=== PATIENT | female | born 1955 | race Caucasian/White ===

== ENCOUNTER 2016-04-07 20:19 | Emergency (ER) | payer OTHER ==
[~2016-04-07] VITALS: Ht 162.6 cm; Wt 67.1 kg
[~2016-04-07 20:19] MED LIST: ADVIL COLD PO; BACTRIM DS TAB1 EACH PO; CIPRODEX OTIC7.5 ML OT; CLEOCIN HCL150 MG PO; FAMVIR 500MG500 MG PO; IBUPROFEN COLD PO; KEFLEX500 M1 PO; LASIX20 M1 PO; [UNRECOGNIZED DRUG - OTHER] PO
[2016-04-07 20:55] VITALS: BP 152/81
[2016-04-07] MEDS ORDERED: MUPIROCIN22 GM TOP (22:19)
--- NOTE | 2016-04-07 22:19 | ED GENERAL ADULT ---
History of Present Illness General Chief Complaint: General Adult Stated Complaint: PT HAS A BUMP ON HER HEAD GETTING BIGGER Source: patient, old records Exam Limitations: no limitations Vital Signs & Intake/Output Vital Signs & Intake/Output Vital Signs Date Time Temp Pulse Resp B/P Pulse O2 O2 Flow FiO2 Ox Delivery Rate 04/07 2054 97.9 91 18 152/81 97 Room Air ED Intake and Output 04/08 0000 04/07 1200 Intake Total Output Total Balance Patient 148 lb Weight Allergies Coded Allergies: Penicillins (PENICILLIN - BABY? 04/13/15) Reconcile Medications Cephalexin (Keflex) 500 MG CAPSULE 1 TAB PO TID CELLULITIS Ciprofloxacin HCl/Dexameth (Ciprodex Otic Suspension) 7.5 ML DROPS.SUSP 4 GTT OT BID OTITIS EXTERNA Furosemide (Lasix) 20 MG TABLET 1 TAB PO DAILY EDEMA IBUPROFEN/PSEUDOEPHEDRINE HCL (Ibuprofen Cold-Sinus Cplt) 1 TAB TAB 1 TAB PO PRN HEADACHES/SINUSES (Reported) Mupirocin 2 % OINT...G. 1 DOUGLAS TOP TID PRN facial rash apply to affected area(s) Sulfamethoxazole/Trimethoprim (Bactrim Ds Tablet) 1 EACH TABLET 1 TAB PO BID CELLULITIS Triage Note: PT TO ED C/O ENLARGING LUMP ON TOP OF HEAD AND RISA EAR PROBLEMS FOR A COUPLE OF DAYS Triage Nurses Notes Reviewed? yes HPI: Patient is a 60-year-old female presents complaining of a "bump to her head" and rash to her face. Patient reports that she has had both for several years. Patient has seen her primary doctor who recommended that patient sees a loan operations specialist but patient has not seen a loan operations specialist. Patient reports over the past few days she has felt inflammation to her face and has had "lesions breakout". Also reports a bump to the left upper part of her scalp is been there for years. Patient reports that she was told that it was a lipoma but noticed that it was getting slightly bigger over the past few weeks. Patient also reports decreased hearing for the past couple of weeks. Patient denies fevers (CHRISTINA BEGUM,VICENTA) Past History Travel History Traveled to [place] past 21 day No Medical History Any Pertinent Medical History? see below for history Neurological: "bad migraines" EENT: NONE Cardiovascular: ABNORMAL EKG Respiratory: NONE Gastrointestinal: NONE Hepatic: NONE Renal: NONE Musculoskeletal: sciatica, R HIP CHRONIC PAIN Psychiatric: NONE Endocrine: NONE Blood Disorders: NONE Other Medical Hx: Lipoma to scalp Tetanus Vaccine: 06/25/11 Surgical History Surgical History: non-contributory Psychosocial History What is your primary language Chinese Tobacco Use: Quit >30 days ago ETOH Use: denies use Illicit Drug Use: denies illicit drug use Family History Hx Contributory? No (VICENTA HINDS) Review of Systems Review of Systems Constitutional: Denies: chills, fever. EENTM: Reports: see HPI, hearing changes. Respiratory: Denies: short of breath. Cardiovascular: Denies: chest pain. GI: Denies: abdominal pain. Musculoskeletal: Reports: no symptoms. Skin: Reports: see HPI. Neurological/Psychological: Reports: no symptoms. Hematologic/Endocrine: Denies: bruising, bleeding. Immunologic/Allergic: Denies: splenectomy. (VICENTA HINDS) Physical Exam Physical Exam General Appearance: well developed/nourished, alert, awake Head: 2.5 cm soft raised nodular density to the left superior scalp. No erythema, no induration, no fluctuance. multiple 0.5 cm scabbed lesions to bridge of nose and bilateral cheeks. No drainage no surrounding erythema. Eyes: Bilateral: normal appearance, PERRL, EOMI. Ears, Nose, Throat: bilateral cerumen impaction. No inflammation of the external auditory canals. Neck: normal inspection, supple, full range of motion Respiratory: no respiratory distress Back: normal inspection, normal range of motion Extremities: normal inspection, normal capillary refill, normal range of motion Neurologic/Psych: awake, alert, oriented x 3 Skin: see head exam Lymphatic: no anterior cervical zeenat Core Measures ACS in differential dx? No CVA/TIA Diagnosis: No Severe Sepsis Present: No Septic Shock Present: No (VICENTA HINDS) Progress Differential Diagnoses I considered the following diagnoses in my evaluation of the patient: Lipoma, shingles, impetigo, allergic reaction, excoriations, cellulitis Plan of Care: Patient afebrile, nontoxic appearing. Patient instructed to follow-up with her primary doctor regarding her lipoma and skin lesions for further evaluation. Initial ED EKG: none (VICENTA HINDS) Departure Departure Time of Disposition: 2216 Disposition: HOME OR SELF CARE Condition: Stable Clinical Impression Primary Impression: Lipoma Secondary Impressions: Cerumen impaction, Facial rash Referrals: CHAS GEE MD (PCP/Family) Additional Instructions: Follow-up with your primary doctor next week for further evaluation. Call Sunday for appointment. Use Debrox ear drops(over the counter) for the ear wax build up in your ears as directed. Return to the emergency department if fevers or worsening of symptoms. Departure Forms: Customer Survey General Discharge Information Prescriptions: Current Visit Scripts Mupirocin 1 DOUGLAS TOP TID PRN facial rash #15 GM apply to affected area(s) (VICENTA HINDS) PA/LEAD ETL DEVELOPER Co-Sign Statement Statement: ED Attending supervision documentation- [] I saw and evaluated the patient. I have also reviewed all the pertinent lab results and diagnostic results. I agree with the findings and the plan of care as documented in the PA's/LEAD ETL DEVELOPER's documentation. [x] I have reviewed the ED Record and agree with the PA's/LEAD ETL DEVELOPER's documentation. [] Additions or exceptions (if any) to the PAs/LEAD ETL DEVELOPER's note and plan are summarized below: [] (UMANG RAMIREZ,SHERWIN Quintana) Critical Care Note Critical Care Note Critical Care Time: non-applicable (VICENTA HINDS)
== END 2016-04-07 22:34 ==
LOC: ERH 20:19
DX: D17.9 Benign lipomatous neoplasm, unspecified (principal); H61.23 Impacted cerumen, bilateral

== ENCOUNTER 2016-06-23 20:10 | Emergency (ER) | payer OTHER ==
[~2016-06-23] VITALS: Ht 162.6 cm; Wt 63.5 kg
[~2016-06-23 20:10] MED LIST changes: +MUPIROCIN22 GM TOP
[2016-06-23 20:16] VITALS: BP 146/80
[2016-06-23] MEDS ORDERED: MELOXICAM15 M1 (21:23)
[2016-06-23] MEDS ORDERED: CYCLOBENZAPRINE10 M1 (21:24)
--- NOTE | 2016-06-23 21:41 | ED GI/GU/ABDOMINAL COMPLAINT ---
History of Present Illness General Chief Complaint: Lower Extremity Problems Stated Complaint: PT IS HAVING HIP PAIN Source: patient Exam Limitations: no limitations Allergies Coded Allergies: Penicillins (PENICILLIN - BABY? 04/13/15) Reconcile Medications Cyclobenzaprine HCl (Unknown Strength) TABLET (Unknown Dose) UNKNOWN ( Reported) Ibuprofen/Pseudoephedrine HCl (Ibuprofen Cold-Sinus Cplt) 200 MG-30 MG TABLET 1 TAB PO PRN HEADACHES/SINUSES (Reported) Meloxicam (Unknown Strength) TABLET (Unknown Dose) UNKNOWN (Reported) Triage Note: PT TO ED FOR WORSENING R SIDED CHRONIC HIP PAIN. PAIN RADIATES DOWN R LEG. "PAIN HAS BEEN GOING ON FOR MONTHS" WORSE TONIGHT. PAIN 8/. 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 "I'VE BEEN STANDING A LOT THE PAST FEW DAYS IT FEELS BETTER WHEN I SIT." PT AMBULATORY TO TRIAGE. Triage Nurses Notes Reviewed? yes ? N Is pt currently ? No HPI: This patient is a 60-year-old female who presented to the emergency department today for evaluation of chronic right hip pain. The patient reported that she gets pain in her hip and it radiates down to her knee. She reported that this comes and goes over the last year. She has been seen and was told that she may need an MRI. The patient never followed up. The patient reported that she has been walking a lot today and the pain started while she was walking to come appeared to eat at [employer]. The patient denied any difficulty walking. She reported the pain except a 6 out of 10 and is sharp. She denied any bowel or bladder incontinence. No saddle paresthesia. She denied any trauma or falls to the area she denied any fevers or chills. No difficulty breathing or chest pain. (RAMIRO MENDENHALL,ANJU) Vital Signs & Intake/Output Vital Signs & Intake/Output Vital Signs Date Time Temp Pulse Resp B/P B/P Pulse O2 O2 Flow FiO2 Mean Ox Delivery Rate 06/24 2015 97.9 84 16 146/80 97 Room Air ED Intake and Output 06/24 0000 06/23 1200 Intake Total Output Total Balance Patient 140 lb Weight Weight Reported by Patient Measurement Method Past History Travel History Traveled to [place] past 21 day No Medical History Any Pertinent Medical History? see below for history Neurological: "bad migraines" EENT: NONE Cardiovascular: ABNORMAL EKG Respiratory: NONE Gastrointestinal: NONE Hepatic: NONE Renal: NONE Musculoskeletal: sciatica, R HIP CHRONIC PAIN Psychiatric: NONE Endocrine: NONE Blood Disorders: NONE Other Medical Hx: Lipoma to scalp Tetanus Vaccine: 06/25/11 Surgical History Surgical History: non-contributory Psychosocial History What is your primary language Syrian Tobacco Use: Quit >30 days ago Family History Hx Contributory? No (ANJU RUBIO PA-C) Review of Systems Review of Systems Constitutional: Reports: no symptoms. EENTM: Reports: no symptoms. Respiratory: Reports: no symptoms. Cardiovascular: Reports: no symptoms. GI: Reports: no symptoms. Genitourinary: Reports: no symptoms. Musculoskeletal: Reports: see HPI. Skin: Reports: no symptoms. Neurological/Psychological: Reports: no symptoms. All Other Systems: Reviewed and Negative (ANJU RUBIO PA-C) Physical Exam Physical Exam Gastrointestinal: normal bowel sounds, soft, non-tender, no organomegaly Comments: Well-developed well-nourished person in no acute distress. HEENT: Head normocephalic, moist mucous membranes Neck: Supple, no lymphadenopathy Back: Normal inspection. No midline tenderness. No paraspinal musculature tenderness. Respiratory: No respiratory distress. Speaking in full sentences Extremities: No edema, full range of motion Neuro: Alert and oriented x3 Psych: Mood affect normal, normal memory normal judgment. Skin: Warm and dry, no rash on exposed skin Core Measures ACS in differential dx? No Severe Sepsis Present: No Septic Shock Present: No (ANJU RUBIO PA-C) Progress Differential Diagnosis: SCIATICA, DISC HERNIATION, CAUDA EQUINA SYNDROME, MUSCLE STRAIN Plan of Care: This patient is a 60-year-old female who presented to the emergency department today for evaluation of chronic right hip pain. The patient is able to ambulate without difficulty around the room. She has full range of motion at her hip. She reported that this pain is something that comes and goes on its own over the last year. She would like an orthopedist to follow up with. Stable for discharge home. Likely sciatica. Initial ED EKG: none (ANJU RUBIO PA-C) Departure Departure Disposition: HOME OR SELF CARE Condition: Stable Clinical Impression Primary Impression: Sciatica Qualifiers: Laterality: right Qualified Code: M54.31 - Sciatica, right side Referrals: THEODORE RAMIREZ,CHAS PERKINS MD (PCP/Family) Additional Instructions: Please follow-up with the orthopedist's information has been provided to you in this packet. youmay take [id number] Tylenol for your symptoms. Elevate your leg when possible. Gentle stretching. Return for any worsening symptoms or concerns. Please follow-up with your primary care physician. Departure Forms: Customer Survey General Discharge Information (RAMIRO MENDENHALL,ANJU) PA/SWEAT BAND SEPARATOR Co-Sign Statement Statement: ED Attending supervision documentation- [] I saw and evaluated the patient. I have also reviewed all the pertinent lab results and diagnostic results. I agree with the findings and the plan of care as documented in the PA's/SWEAT BAND SEPARATOR's documentation. [x] I have reviewed the ED Record and agree with the PA's/SWEAT BAND SEPARATOR's documentation. [] Additions or exceptions (if any) to the PAs/SWEAT BAND SEPARATOR's note and plan are summarized below: [] (UMANG RAMIREZ,SHERWIN Quintana)
== END 2016-06-23 21:49 ==
LOC: ERH 20:10
DX: M54.41 Lumbago with sciatica, right side (principal)

== ENCOUNTER 2017-04-25 15:55 | Emergency (ER) | payer OTHER ==
[~2017-04-25] VITALS: Ht 162.6 cm; Wt 59.0 kg
[~2017-04-25 15:55] MED LIST changes: +CYCLOBENZAPRINE10 M1; +IBUPROFEN IB200 M1 PO; +MELOXICAM15 M1
[2017-04-25 15:59] VITALS: BP 153/92
--- NOTE | 2017-04-25 16:31 | ED UPPER/LOWER EXTREMITY COMPL ---
History of Present Illness General Chief Complaint: Lower Extremity Problems Stated Complaint: PT RT LEG WAS SWOLLEN SOME FEELS HARD Source: patient, old records Exam Limitations: no limitations Vital Signs & Intake/Output Vital Signs & Intake/Output Vital Signs Date Time Temp Pulse Resp B/P B/P Pulse O2 O2 Flow FiO2 Mean Ox Delivery Rate 04/25 1559 96.0 90 15 153/92 97 Room Air Room Air Allergies Coded Allergies: Penicillins (PENICILLIN - BABY? 04/25/17) Reconcile Medications Cephalexin (Keflex) 500 MG CAPSULE 1 CAP PO TID INFECTION Ibuprofen (Ibuprofen Ib) 200 MG TABLET 1 TAB PO PRN PAIN (Reported) Triage Note: PT TO ED FOR C/C OF RLE SWELLING, SLIGHT REDNESS AND WARMTH STARTED APPROX 1 WEEK AGO. HX OF FLUID RETENTION IN LEGS IN PAST. DENIES FEVERS/CHILLS. Triage Nurses Notes Reviewed? yes Onset: Abrupt Duration: day(s): (2) Timing: recent history Severity: mild No Modifying Factors: none HPI: 61 year old female with history of previous cellulitis presents to the ER with a hard sensation to the right lower leg for the past 2 days. No fever or redness. She wanted to make sure the area was not going to become cellulitic. SHe states that she has had some increased lower exremity swelling because of increased salt in the diet. No chest pain, sob, palpitations. No trauma. Past History Travel History Traveled to [place] past 21 day No Medical History Any Pertinent Medical History? see below for history Neurological: "bad migraines" EENT: NONE Cardiovascular: ABNORMAL EKG Respiratory: NONE Gastrointestinal: NONE Hepatic: NONE Renal: NONE Musculoskeletal: sciatica, R HIP CHRONIC PAIN Psychiatric: NONE Endocrine: NONE Blood Disorders: NONE Other Medical Hx: Lipoma to scalp Tetanus Vaccine: 06/25/11 Surgical History Surgical History: non-contributory Psychosocial History What is your primary language Kinyarwanda Tobacco Use: Quit >30 days ago ETOH Use: denies use Illicit Drug Use: denies illicit drug use Family History Hx Contributory? No Review of Systems Review of Systems Constitutional: Reports: see HPI. EENTM: Reports: no symptoms. Respiratory: Denies: cough. Cardiovascular: Reports: peripheral edema. Denies: chest pain. Gastrointestinal/Abdominal: Reports: no symptoms. Genitourinary: Reports: no symptoms. Musculoskeletal: Reports: no symptoms. Skin: Reports: no symptoms. Neurological/Psychological: Reports: no symptoms. Hematologic/Endocrine: Denies: bruising, bleeding, polyuria, polydipsia. Immunological: Reports: no symptoms. All Other Systems: Reviewed and Negative Physical Exam Physical Exam General Appearance: well developed/nourished, alert, awake, mild distress Head: atraumatic Eyes: Bilateral: PERRL, EOMI. Ears, Nose, Throat: normal pharynx, normal ENT inspection, hearing grossly normal Neck: normal inspection, supple Cardiovascular/Respiratory: regular rate/rhythm Back: normal inspection Leg Left: MILD EDEMA, CHRONIC VENOUS STASIS CHANGES Leg Right: MILD EDEMA, AROUND OF DRY/HARD SKIN. NO ERYTHEMA/WARMTH OR TENDERNESS Hip Left: normal range of motion, normal inspection Hip Right: normal range of motion, normal inspection Knee Left: normal range of motion, normal inspection Knee Right: normal range of motion, normal inspection Foot Left: POOR HYGEINE, DIRT AROUND TOES Foot Right: POOR HYGEINE, DIRT AROUD TOES Skin: intact, normal color, warm/dry Lymphatic: no anterior cervical zeenat Diagram Legs Front/Back 1) AREA OF DRY/HARD SKIN Progress Differential Diagnosis: DRY SKIN, CHRONIC VENOUS STASIS CHANGES, POOR HYGEINE Plan of Care: WARM SOAKS TO FEET, MOISTURIZE SKIN. FOLLOW UP WITH PCP OR IN THE ED IF WORSE. Departure Departure Time of Disposition: 1636 Disposition: HOME OR SELF CARE Condition: Stable Clinical Impression Primary Impression: Chronic venous stasis dermatitis Referrals: Mick Guerra MD (PCP/Family) Additional Instructions: SOAK YOUR LEGS TWICE A DAY AND MAKE SURE THE FEET ARE CLEAN MOISTURIZE THE LEGS WE DISCUSSED FOLLOW UP WITH DR GUERRA IN THE OFFICE OR RETURN TO THE ER IF WORSE Departure Forms: Customer Survey General Discharge Information
== END 2017-04-25 16:42 ==
LOC: ERH 15:55
DX: I87.2 Venous insufficiency (chronic) (peripheral) (principal)
CPT/HCPCS: 99282